=== PATIENT | male | born 1990 | race Caucasian/White ===

== ENCOUNTER 2021-01-02 19:57 | Emergency (ER) | payer BC ==
--- NOTE | 2021-01-02 20:41 | EDM.PDOC ---
ED HPI GENERAL MEDICAL PROBLEM - General Chief Complaint: Gastrointestinal Problem Stated Complaint: NAUSEA AND DIZZY Time Seen by Provider: 01/02/21 20:10 Source of Information: Reports: Patient History Limitations: Reports: No Limitations - History of Present Illness INITIAL COMMENTS - FREE TEXT/NARRATIVE: Patient presents here to the ER with chief complaint of nausea intermittent fever dizziness ongoing for the last 3 days. Patient states today though he has been able to eat cheese its and drink plenty of fluids he has had no vomiting the entire time but he had dry heaves yesterday he said the fevers been run anywhere from 99-100.3 over the last several days. He says the dizziness is when he stands up it last anywhere from about 30 seconds to a minute he feels kind of woozy he denies any room spinning or unsteadiness no ringing or roaring of the ears no vision changes He also had some back pain ongoing for the last week or so but he went to the chiropractor Sunday and got adjusted and states that pain is almost gone now. The main thing tonight is just the nausea He has no other complaints at this time Duration: Day(s): Severity: Mild Improves with: Reports: Medication Associated Symptoms: Reports: Fever/Chills, Headaches, Nausea/Vomiting. 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 Denies: Malaise, Weakness, Fatigue, Decreased Appetite HEENT: Reports: No Symptoms Respiratory: Denies: Shortness of Breath, Wheezing, Pleuritic Chest Pain, Cough Cardiovascular: Reports: No Symptoms Endocrine: Reports: No Symptoms GI/Abdominal: Reports: Nausea. Denies: Abdominal Pain, Anorexia, Constipation, Diarrhea, Difficulty Swallowing, Flatus, Vomiting : Reports: No Symptoms Musculoskeletal: Reports: Muscle Pain Skin: Reports: No Symptoms Neurological: Reports: Dizziness, Headache (Generalized dull headache about a 2 out of 10 he rates intermittently goes away with aspirin). Denies: Syncope, Weakness Psychiatric: Reports: No Symptoms Hematologic/Lymphatic: Reports: No Symptoms Immunologic: Reports: No Symptoms ED EXAM, GENERAL - Physical Exam Exam: See Below Exam Limited By: No Limitations General Appearance: Alert, WD/WN, No Apparent Distress Eye Exam: Bilateral Eye: EOMI, Normal Inspection, PERRL Ears: Normal External Exam, Normal Canal, Hearing Grossly Normal, Normal TMs Nose: Normal Inspection, Normal Mucosa, No Blood Throat/Mouth: Normal Inspection, Normal Lips, Normal Teeth, Normal Gums, Normal Oropharynx, Normal Voice, No Airway Compromise Head: Atraumatic, Normocephalic Neck: Normal Inspection, Supple, Non-Tender, Full Range of Motion Respiratory/Chest: No Respiratory Distress, Lungs Clear, Normal Breath Sounds, No Accessory Muscle Use, Chest Non-Tender Cardiovascular: Normal Peripheral Pulses, Regular Rate, Rhythm, No Edema, No Gallop, No JVD, No Murmur, No Rub GI/Abdominal: Normal Bowel Sounds, Soft, Non-Tender, No Organomegaly, No Distention. No: Guarding, Rigid, Rebound, Tender Back Exam: Normal Inspection, Full Range of Motion Extremities: Normal Inspection, Normal Range of Motion, Non-Tender, Normal Capillary Refill Neurological: Alert, Oriented, CN II-XII Intact, Normal Cognition, Normal Gait, No Motor/Sensory Deficits Psychiatric: Normal Affect, Normal Mood Skin Exam: Warm, Dry, Intact, Normal Color, No Rash Lymphatic: No Adenopathy Course - Vital Signs Text/Narrative:: Vital signs reviewed and normal limits we will check for Covid patient is to follow-up with a primary care provider Rapid Covid negative Last Recorded V/S: Last Vital Signs Temp 36.5 C 01/02/21 20:05 Pulse 103 H 01/02/21 20:05 Resp 12 01/02/21 20:05 BP 109/74 01/02/21 20:05 Pulse Ox 99 01/02/21 20:05 - Orders/Labs/Meds Labs: Laboratory Tests 01/02/21 Range/Units 20:37 SARS CoV-2 RNA Rapid MADDIE Negative (NEGATIVE) Departure - Departure Time of Disposition: 20:50 Disposition: Home, Self-Care 01 Condition: Good Clinical Impression: Nausea, Dizziness, Myalgia - Discharge Information *PRESCRIPTION DRUG MONITORING PROGRAM REVIEWED*: No *COPY OF PRESCRIPTION DRUG MONITORING REPORT IN PATIENT [place]: No Instructions: Nausea, Adult, Ippo-ac-[id number] Forms: ED Department Discharge Additional Instructions: Slowly advance your diet as tolerated make sure you are drinking plenty of fluids such as Sprite Gatorade Pedialyte water Continue to take Tylenol [id number] ibuprofen as directed follow directions on the bottle do not exceed the medication dosage Follow-up with your primary care provider in the next 24 to 48 hours Take your medications as you were directed and prescribed Return to the emergency room if anything changes or gets worse Sepsis Event Note (ED) - Focused Exam Vital Signs: Vital Signs Temp Pulse Resp BP Pulse Ox 01/02/21 20:05 36.5 C 103 H 12 109/74 99 - Problem List & Annotations (1) Dizziness SNOMED Code(s): 005692516, 196228439 Code(s): R42 - DIZZINESS AND GIDDINESS Status: Acute Current Visit: No (2) Myalgia SNOMED Code(s): 09052840 Code(s): M79.10 - MYALGIA, UNSPECIFIED SITE Status: Acute Current Visit: No (3) Nausea SNOMED Code(s): 604302492 Code(s): R11.0 - NAUSEA Status: Acute Current Visit: No
== END 2021-01-02 21:00 | disposition home or self-care (01) ==
LOC: VM.ED 19:57
DX: M79.10 Myalgia, unspecified site (principal); R42 Dizziness and giddiness; R11.0 Nausea; Z20.822 Contact with and (suspected) exposure to COVID-19
CPT/HCPCS: 99284; U0002

== ENCOUNTER 2021-01-13 14:29 | Emergency (ER) | payer BC ==
[2021-01-13] MEDS ORDERED: Sodium Chloride 0.9% 10 ML Syringe FLUSH PRN (14:37)
[2021-01-13] MEDS ORDERED: Metoclopramide 10 MG/2 ML SDV IVPUSH ONE (14:49)
[2021-01-13] MEDS ORDERED: Ketorolac 15 MG/ML SDV IVPUSH ONE (14:49)
--- NOTE | 2021-01-13 15:00 | EDM.PDOC ---
ED HPI GENERAL MEDICAL PROBLEM - General Stated Complaint: ER VISIT Time Seen by Provider: 01/13/21 14:31 Source of Information: Reports: Patient History Limitations: Reports: No Limitations - History of Present Illness INITIAL COMMENTS - FREE TEXT/NARRATIVE: Pt. presents to ER with complaints of facial numbness since this AM. He states that this started today when he got out of the shower at around 7 AM. Pt. states that he has been having a headache for several weeks. He has been going to a chiropractor for chronic neck pain and had an adjustment yesterday. Pt. went to work today and presented to ER after work this afternoon. He states that the headache has resolved, but he has noticed some continued R sided facial paresthesia and mild weakness. He states that he is having troubles closing the R eye. Pt. relates that he was having some R sided blepharospasm of the R eye as well on Sunday, but states that the paresthesia and facial weakness was noted at 7 AM. Pt. denies any numbness/tingling in extremities. No problems with speech or ambulation. Denies any vision loss or change. No problems with speech or ambulation. Pt. states that he has had problems with headache recently in the past. He was seen in [place] ER on 01/04/2021 and diagnosed with tension headache, started on toradol and reglan at that time. 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 [No Known Home Meds] 01/13/21 [History] ED ROS GENERAL - Review of Systems Review Of Systems: See Below Constitutional: Reports: No Symptoms HEENT: Reports: No Symptoms Respiratory: Reports: No Symptoms Cardiovascular: Reports: No Symptoms Endocrine: Reports: No Symptoms GI/Abdominal: Reports: No Symptoms : Reports: No Symptoms Musculoskeletal: Reports: No Symptoms Skin: Reports: No Symptoms Neurological: Reports: Headache, Numbness, Paresthesia (R side of face) Psychiatric: Reports: No Symptoms Hematologic/Lymphatic: Reports: No Symptoms Immunologic: Reports: No Symptoms ED EXAM, GENERAL - Physical Exam Exam: See Below Exam Limited By: No Limitations General Appearance: Alert, WD/WN, No Apparent Distress Eye Exam: Bilateral Eye: EOMI, Normal Fundi, Normal Inspection, PERRL Nose: Normal Inspection, Normal Mucosa, No Blood Throat/Mouth: Normal Inspection, Normal Lips, Normal Teeth, Normal Gums, Normal Oropharynx, Normal Voice, No Airway Compromise Head: Atraumatic, Normocephalic Neck: Normal Inspection, Supple, Non-Tender, Full Range of Motion Respiratory/Chest: No Respiratory Distress, Lungs Clear, Normal Breath Sounds, No Accessory Muscle Use, Chest Non-Tender Cardiovascular: Normal Peripheral Pulses, Regular Rate, Rhythm, No Edema, No JVD, No Murmur, No Rub Peripheral Pulses: 4+: Radial (R) GI/Abdominal: Soft, Non-Tender, No Distention, No Mass (Male) Exam: Deferred Rectal (Males) Exam: Deferred Back Exam: Normal Inspection, Full Range of Motion Extremities: Normal Inspection, Normal Range of Motion, Non-Tender, No Pedal Edema, Normal Capillary Refill Neurological: Alert, Oriented, Normal Cognition, Normal Gait, Normal Reflexes, Other (Mild R sided facial weakness, unable to fully close eye, R sided facial paresthesia to R side of face) Course - Vital Signs Last Recorded V/S: Last Vital Signs Temp 36.6 C 01/13/21 14:31 Pulse 103 H 01/13/21 14:31 Resp 18 01/13/21 14:31 BP 133/85 01/13/21 14:31 Pulse Ox 100 01/13/21 14:31 - Orders/Labs/Meds Labs: Laboratory Tests 01/13/21 01/13/21 01/13/21 Range/Units 14:50 14:50 14:50 WBC 8.4 (4.0-10.0) x10^3/uL RBC 4.78 (4.5-6.0) x10^6/uL Hgb 14.7 (14.0-18.0) g/dL Hct 42.0 (40.0-52.0) % MCV 87.9 (78.0-93.0) fL MCH 30.8 (26.0-32.0) pg MCHC 35.0 (32.0-36.0) g/dL RDW Coeff of Marek 11.6 (10.0-15.0) % Plt Count 304 (130-400) x10^3/uL Immature Gran % (Auto) 0.80 H (0.00-0.43) % Neut % (Auto) 60.6 (50.0-80.0) % Lymph % (Auto) 27.3 (25.0-50.0) % Placer % (Auto) 10.0 (2.0-11.0) % Eos % (Auto) 0.9 (0.0-4.0) % Baso % (Auto) 0.4 (0.2-1.2) % Neut # (Auto) 5.1 (1.8-7.7) x10^3/uL Lymph # (Auto) 2.3 (1.0-4.8) x10^3/uL Placer # (Auto) 0.8 (0.0-0.8) x10^3/uL Eos # (Auto) 0.1 (0.0-0.5) x10^3/uL Baso # (Auto) 0.0 (0.0-0.2) x10^3/uL Immature Gran # (Auto) 0.07 (0.00-0.07) x10^3/uL PT 10.3 (9.9-12.5) SEC INR 0.9 L (2.0-3.5) APTT (25.6-32.8) SEC Sodium 141 (136-145) mmol/L Potassium 3.7 (3.5-5.1) mmol/L Chloride 104 (98-107) mmol/L Carbon Dioxide 28 (21-32) mmol/L Anion Gap 12.7 (5-15) mmol/L BUN 20 H (7-18) mg/dL Creatinine 0.9 (0.70-1.30) mg/dL Est Cr Clr Drug Dosing TNP Estimated GFR (MDRD) > 60 Glucose 91 (70-99) mg/dL Calcium 8.8 (8.5-10.1) mg/dL Corrected Calcium 8.6 (8.5-10.1) mg/dL Magnesium 2.3 (1.8-2.4) mg/dL Total Bilirubin 0.3 (0.2-1.0) mg/dL AST 19 (15-37) U/L ALT 23 (16-63) U/L Alkaline Phosphatase 63 (46-116) U/L Troponin I High Sens < 4 (<=76) ng/L C-Reactive Protein < 0.2 (<=0.9) mg/dL Total Protein 7.6 (6.4-8.2) g/dL Albumin 4.2 (3.4-5.0) g/dL Globulin 3.4 Albumin/Globulin Ratio 1.24 TSH, Ultra Sensitive 1.561 (0.358-3.74) uIU/mL Ethyl Alcohol < 3 (0-3) mg/dL 01/13/21 Range/Units 14:50 WBC (4.0-10.0) x10^3/uL RBC (4.5-6.0) x10^6/uL Hgb (14.0-18.0) g/dL Hct (40.0-52.0) % MCV (78.0-93.0) fL MCH (26.0-32.0) pg MCHC (32.0-36.0) g/dL RDW Coeff of Marek (10.0-15.0) % Plt Count (130-400) x10^3/uL Immature Gran % (Auto) (0.00-0.43) % Neut % (Auto) (50.0-80.0) % Lymph % (Auto) (25.0-50.0) % Placer % (Auto) (2.0-11.0) % Eos % (Auto) (0.0-4.0) % Baso % (Auto) (0.2-1.2) % Neut # (Auto) (1.8-7.7) x10^3/uL Lymph # (Auto) (1.0-4.8) x10^3/uL Placer # (Auto) (0.0-0.8) x10^3/uL Eos # (Auto) (0.0-0.5) x10^3/uL Baso # (Auto) (0.0-0.2) x10^3/uL Immature Gran # (Auto) (0.00-0.07) x10^3/uL PT (9.9-12.5) SEC INR (2.0-3.5) APTT 24.5 L (25.6-32.8) SEC Sodium (136-145) mmol/L Potassium (3.5-5.1) mmol/L Chloride (98-107) mmol/L Carbon Dioxide (21-32) mmol/L Anion Gap (5-15) mmol/L BUN (7-18) mg/dL Creatinine (0.70-1.30) mg/dL Est Cr Clr Drug Dosing Estimated GFR (MDRD) Glucose (70-99) mg/dL Calcium (8.5-10.1) mg/dL Corrected Calcium (8.5-10.1) mg/dL Magnesium (1.8-2.4) mg/dL Total Bilirubin (0.2-1.0) mg/dL AST (15-37) U/L ALT (16-63) U/L Alkaline Phosphatase (46-116) U/L Troponin I High Sens (<=76) ng/L C-Reactive Protein (<=0.9) mg/dL Total Protein (6.4-8.2) g/dL Albumin (3.4-5.0) g/dL Globulin Albumin/Globulin Ratio TSH, Ultra Sensitive (0.358-3.74) uIU/mL Ethyl Alcohol (0-3) mg/dL Meds: Medications Discontinued Medications Generic Name Dose Route Start Last Admin Trade Name Freq PRN Reason Stop Dose Admin Ketorolac Tromethamine 15 mg 01/13/21 14:49 Ketorolac 15 Mg/Ml Sdv IVPUSH 01/13/21 14:50 ONETIME ONE Metoclopramide HCl 10 mg 01/13/21 14:49 Metoclopramide 10 Mg/2 Ml Sdv IVPUSH 01/13/21 14:50 ONETIME ONE Sodium Chloride 10 ml 01/13/21 14:37 Sodium Chloride 0.9% 10 Ml Syringe FLUSH ASDIRECTED PRN Keep Vein Open Departure - Departure Time of Disposition: 16:30 Disposition: Home, Self-Care 01 Clinical Impression: Ramos's palsy - Discharge Information Instructions: Ramos Palsy, Adult, Valacyclovir caplets, Prednisone tablets Referrals: PCP,None [Primary Care Provider] - Forms: ED Department Discharge Additional Instructions: Prednisone 80mg once daily for 7 days Valacyclovir 1000mg 1 tab three times daily for 7 days Establish care, follow-up in clinic in 7 days Return to ER if you have troubles with speech, walking, vision, or if you have other worrisome signs/symptoms. Feel free to call at any time. - Problem List Review Problem List Initiated/Reviewed/Updated: Yes - Assessment/Plan Plan: Prednisone 80mg once daily for 7 days Valacyclovir 1000mg 1 tab three times daily for 7 days Establish care, follow-up in clinic in 7 days Return to ER if you have troubles with speech, walking, vision, or if you have other worrisome signs/symptoms. Feel free to call at any time.
[2021-01-13 15:24] LABS: ANION GAP 12.7 mmol/L (5-15); CHLORIDE,CL 104 mmol/L (98-107); SODIUM,NA 141 mmol/L (136-145)
--- NOTE | 2021-01-13 15:36 | CT ---
[id number] CT/CT Head WO IV EXAM: CT Head WO IV CLINICAL DATA: HEADACHE COMPARISON: No previous similar exam is available for comparison. FINDINGS: There is no mass or mass effect. There is no hemorrhage or hydrocephalus. There are no extra-axial fluid collections. There are no sites of abnormal attenuation. IMPRESSION: NO PLAIN CT EVIDENCE OF ACUTE INTRACRANIAL PROCESS. Celio Mike MD 01/13/21 [id number] Thank you for allowing us to participate in the care of your patient.
== END 2021-01-13 16:07 | disposition home or self-care (01) ==
LOC: VM.ED 14:29
DX: G51.0 Bell's palsy (principal)
CPT/HCPCS: 70450; 80053; 80307; 83735; 84443; 84484; 85025; 85610; 85730; 86140; 93005; 99284; 99284-25